=== PATIENT | female | born 1975 | race Two or more races ===

== ENCOUNTER 2023-08-22 21:14 | Inpatient (IN) | payer OTHER ==
[2023-08-22 23:23] VITALS: BMI 21.9
[2023-08-23] MEDS ORDERED: NICOTINE POLACRILEX 2 MG GUM BUC PRN (03:35)
[2023-08-23] MEDS ORDERED: BENZONATATE 200 MG CAPSULE PO PRN (03:35)
[2023-08-23] MEDS ORDERED: MAG HYDROX/AL HYDROX/SIMETH 30 ML UNIT-DOSE CUP PO PRN (03:35)
[2023-08-23] MEDS ORDERED: NALOXONE HCL (KLOXXADO) 8 MG SPRAY NS PRN (03:35)
[2023-08-23] MEDS ORDERED: ONDANSETRON *ODT* 4 MG TABLET SL PRN (03:35)
[2023-08-23] MEDS ORDERED: BISMUTH SUBSALICYLATE 524 MG/30 ML PO PRN (03:35)
[2023-08-23] MEDS ORDERED: POLYETHYLENE GLYCOL (HEALTHYLAX) 3350 17 GM PACKET PO PRN (03:35)
[2023-08-23] MEDS ORDERED: NALOXONE HCL 0.4 MG/ML VIAL IM PRN (03:35)
[2023-08-23] MEDS ORDERED: IBUPROFEN 400 MG TABLET (FP) PO PRN (03:35)
[2023-08-23] MEDS ORDERED: BENZOCAINE/MENTHOL (CHLORASEPTIC ) LOZENGE MM PRN (03:35)
[2023-08-23] MEDS ORDERED: guaiFENesin 600 MG TABLET.ER (FP) PO PRN (03:35)
[2023-08-23] MEDS ORDERED: ACETAMINOPHEN 325 MG TABLET (FP) PO PRN (03:35)
[2023-08-23] MEDS ORDERED: MAGNESIUM HYDROX 2400MG/30ML ORAL SUSPENSION 30 ML CUP PO PRN (03:35)
[2023-08-23] MEDS ORDERED: IBUPROFEN 600 MG TABLET (FP) PO PRN (03:35)
[2023-08-23] MEDS ORDERED: DICYCLOMINE HCL 10 MG CAPSULE PO PRN (03:35)
[2023-08-23] MEDS ORDERED: LOPERAMIDE HCL 2 MG CAPSULE PO PRN (03:35)
[2023-08-23] MEDS: PRENATAL VITAMINS W/ FOLIC ACID TABLET (FP) PO SCH (10:33)
[2023-08-23] MEDS: NICOTINE 14 MG/24 HOURS TOPICAL PATCH TD SCH (10:34)
[2023-08-23] MEDS: MELATONIN 5 MG TABLETS PO SCH (22:20)
[2023-08-23] MEDS: hydrOXYzine PAMOATE 25 MG CAPSULE (FP) PO PRN (22:20)
[2023-08-23] MEDS: THIAMINE HCL 100 MG TABLET (FP) PO SCH (22:20)
[2023-08-24] MEDS: METHOCARBAMOL 500 MG TABLET PO PRN (22:33)
[2023-08-26] MEDS: levETIRAcetam 500 MG TABLET (FP) PO SCH (21:47)
[2023-08-27] MEDS: methaDONE HCL 10 MG TABLET (FOR DETOX USE ONLY) PO ONE (09:12)
[2023-08-27 12:51] LABS: BASO % 0.7 % (0-2.0); EOS % 1.3 % (0-4.5); HEMOGLOBIN 15.3 GM/dL (10.7-15.3); MCH 27.2 pg (25.7-33.7); MCHC 33.3 g/dl (32.0-36.0); MEAN CELL VOLUME 81.6 fl (80-96); MEAN PLT VOLUME 8.9 fl (7.5-11.1); PLATELET COUNT 379 10^3/uL (134-434); RBC 5.63 M/mm3 (3.60-5.2); WHITE BLOOD COUNT 8.3 K/mm3 (4.0-10.0)
[2023-08-27 13:26] LABS: POTASSIUM 4.6 mmol/L (3.5-5.1)
[2023-08-27 14:02] LABS: BLOOD UREA NITROGEN 18.8 mg/dL (7-18)
[2023-08-27 14:05] LABS: CREATININE 0.8 mg/dL (0.55-1.3)
[2023-08-27] MEDS: cloNIDine HCL 0.1 MG TABLET PO PRN (14:52)
[2023-08-28 06:19] VITALS: RESP 16
[2023-08-28 09:17] VITALS: BP 148/82; PULSE 90; TEMP 98.1
[2023-08-29] MEDS ORDERED: methaDONE HCL 10 MG TABLET (FOR DETOX USE ONLY) PO ONE (10:00)
== END 2023-08-28 10:40 | disposition other institution (70) | DRG 773 ==
LOC: YASAS 21:14 → Y3N 08-23 03:57
PROVIDERS: ADMIT Allergy & Immunology; ATTEND Psychiatry & Neurology Pain Medicine
PROC: HZ2ZZZZ Detoxification Services for Substance Abuse Treatment (ICD-10-PCS; principal; 2023-08-23)
DX: F11.23 Opioid dependence with withdrawal (principal); F14.20 Cocaine dependence, uncomplicated; F12.20 Cannabis dependence, uncomplicated; F17.210 Nicotine dependence, cigarettes, uncomplicated; F32.A Depression, unspecified; G40.909 Epilepsy, unspecified, not intractable, without status epilepticus; L27.8 Dermatitis due to other substances taken internally; Z86.19 Personal history of other infectious and parasitic diseases; Z56.0 Unemployment, unspecified; Z28.310 Unvaccinated for COVID-19; Z28.9 Immunization not carried out for unspecified reason
CPT/HCPCS: 36415; 80048; 80305; 81025; 82962; 85025; 87635; 93005; 93010

== ENCOUNTER 2023-08-26 09:47 | Emergency (ER) | payer OTHER ==
[2023-08-26 09:56] VITALS: TEMP 98.7; BMI 21.9
[2023-08-26 11:21] VITALS: RESP 16
[2023-08-26 12:31] LABS: EPI CELLS >36 /uL (0-25.1); HYALINE CASTS 1 /uL (0-3.1); URINE APPEARANCE Error; URINE BACTERIA 709 /uL (0-1359); URINE BILIRUBIN NEGATIVE (NEGATIVE); URINE COLOR YELLOW; URINE GLUCOSE (UA) NEGATIVE (NEGATIVE); URINE KETONE NEGATIVE (NEGATIVE); URINE LEUK ESTERASE NEGATIVE (NEGATIVE); URINE NITRITE NEGATIVE (NEGATIVE); URINE PROTEIN 1+ (NEGATIVE); URINE RBC 6 /uL (0-23.9); URINE UROBILINOGEN 0.2 mg/dL (0.2-1.0); URINE WBC 7 /uL (0-25.8)
[2023-08-26 13:02] LABS: BASO % 0.3 % (0-2.0); EOS % 0.3 % (0-4.5); HEMOGLOBIN 14.9 GM/dL (10.7-15.3); LYMPH % 10.8 % (8-40); MCH 27.8 pg (25.7-33.7); MCHC 33.9 g/dl (32.0-36.0); MEAN CELL VOLUME 81.9 fl (80-96); MEAN PLT VOLUME 8.4 fl (7.5-11.1); MONO % 2.9 % (3.8-10.2); NEUT % 85.7 % (42.8-82.8); PLATELET COUNT 330 10^3/uL (134-434); RBC 5.36 M/mm3 (3.60-5.2); RDW 15.6 % (11.6-15.6); WHITE BLOOD COUNT 7.9 K/mm3 (4.0-10.0)
[2023-08-26] MEDS: levETIRAcetam 500 MG/5 ML INJECTION VIAL IVPB ONE (13:06)
[2023-08-26] MEDS ORDERED: levETIRAcetam 500 MG TABLET (FP) PO ONE (13:09)
[2023-08-26 13:16] LABS: POTASSIUM 5.1 mmol/L (3.5-5.1)
[2023-08-26 13:19] LABS: ALBUMIN 3.9 g/dl (3.4-5.0); BLOOD UREA NITROGEN 11.7 mg/dL (7-18)
[2023-08-26] MEDS: levETIRAcetam 500 MG TABLET (FP) PO ONE (13:19)
[2023-08-26 13:21] LABS: CREATININE 0.6 mg/dL (0.55-1.3)
[2023-08-26 13:23] LABS: BILIRUBIN,TOTAL 0.4 mg/dL (0.2-1); TOT PROT 9.5 g/dl (6.4-8.2)
[2023-08-26 16:16] VITALS: BP 124/92; PULSE 93
== END 2023-08-26 16:25 | disposition home or self-care (01) ==
LOC: JER 09:47
DX: G40.909 Epilepsy, unspecified, not intractable, without status epilepticus (principal); Z20.822 Contact with and (suspected) exposure to COVID-19
CPT/HCPCS: 0241U-QW; 36415; 70450-TC; 71045-TC-FY; 80053; 81003; 85025; 87086; 93005; 93010; 99285-25